=== PATIENT | female | born 1985 ===

== ENCOUNTER 2019-04-11 09:40 | Inpatient (IN) | payer BC ==
[2019-04-11] MEDS ORDERED: Sodium Chloride 0.9% 10 ML Syringe FLUSH PRN (10:13)
[2019-04-11] MEDS ORDERED: Tranexamic Acid 1,000 MG in Sodium Chloride 0.9% 100 ML IV PRN (10:13)
[2019-04-11] MEDS ORDERED: Carboprost Tromethamine 250 MCG/1 ML Amp IM PRN (10:13)
[2019-04-11] MEDS ORDERED: Methylergonovine 0.2 MG/1 ML Amp IM PRN (10:13)
[2019-04-11] MEDS ORDERED: Sodium Chloride 0.9% 10 ML SDV IV PRN (10:13)
[2019-04-11] MEDS ORDERED: Misoprostol 25 MCG (1/4 of 100 MCG) Tab VAG PRN ×2 (10:13)
[2019-04-11] MEDS ORDERED: Sodium Chloride 0.9% 2.5 ML Syringe FLUSH PRN (10:13)
[2019-04-11] MEDS ORDERED: Butorphanol 1 MG/ML SDV IVPUSH PRN (10:13)
[2019-04-11] MEDS ORDERED: Terbutaline 1 MG/ML SDV SUBCUT PRN (10:13)
[2019-04-11] MEDS ORDERED: Misoprostol 200 MCG Tab PO PRN (10:13)
[2019-04-11] MEDS ORDERED: Water For Irrigation,Sterile 1,000 ML Container IRR PRN (10:13)
[2019-04-11] MEDS ORDERED: Lidocaine 1% 50 ML MDV INJECT PRN (10:13)
[2019-04-11] MEDS ORDERED: Nalbuphine 10 MG/1 ML Vial IVPUSH PRN (10:13)
[2019-04-11] MEDS ORDERED: Oxytocin/0.9 % Sodium Chloride 30 UNIT/500 ML BAG IV SCH ×2 (10:15)
[2019-04-11] MEDS ORDERED: Lactated Ringers 1,000 ML IV SCH (10:15)
--- NOTE | 2019-04-11 10:19 | PCM.LDHP ---
L&D History of Present Illness - General Date of Service: 04/11/19 Admit Problem/Dx: Admission Diagnosis/Problem Admission Diagnosis/Problem Planned 04/11/19 10:13 34 yo [facility] 04/26/2019 37 6/7wks, planned home delivery but due to GBS pos and SROM at 0800 04/10/2019 <12h came in due to no labor. Source of Information: Patient History Limitations: Reports: No Limitations - History of Present Illness Timing/Duration: Reports: intermittent Location, : Reports: Abdomen Improves with: Reports: None Worsens with: Reports: None Associated Symptoms: Reports: N - Related Data Allergies/Adverse Reactions: Allergies Allergy/AdvReac Type Severity Reaction Status Date / Time No Known Allergies Allergy Verified 04/11/19 10:13 Home Medications: Home Meds Pnv No.95/Ferrous Fum/Folic AC [ Vitamins Tablet] 1 tab PO DAILY [History] H&P Review of Systems - Review of Systems: Review Of Systems: See Below General: Reports: No Symptoms HEENT: Reports: No Symptoms Pulmonary: Reports: No Symptoms Cardiovascular: Reports: No Symptoms Gastrointestinal: Reports: No Symptoms Genitourinary: Reports: No Symptoms Musculoskeletal: Reports: No Symptoms Skin: Reports: No Symptoms Psychiatric: Reports: No Symptoms Neurological: Reports: No Symptoms Hematologic/Lymphatic: Reports: No Symptoms Immunologic: Reports: No Symptoms L&D Exam - Exam Exam: See Below - Vital Signs Weight: 71.123 kg - OB Specific Contraction Intensity: Mild Movement: Active Heart Tones: Present Heart Tones per Min: 130 Heart Rate (FHR) Variability: Moderate (6-25 bmp) Presentation: Vertex (confirmed by BS u/s) - Delatorre Score Delatorre Score Cervix Position: Posterior Delatorre Score Consistency: Soft Delatorre Score Effacement: 51-70% Delatorre Score Dilation: 1-2 cm Delatorre Score 's Station: -3 Delatorre Score Total: 5 - Exam General: Alert, Oriented, Cooperative HEENT: Hearing Intact Lungs: Clear to Auscultation, Normal Respiratory Effort Cardiovascular: Regular Rate, Regular Rhythm, Normal S1, Normal S2 GI/Abdominal Exam: Soft, Non-Tender Rectal Exam: Deferred Genitourinary: Normal external exam, Normal bimanual exam, Cervical dilitation, Cervical fluid. No: Vaginal bleeding Back Exam: Normal Inspection, Full Range of Motion Extremities: Normal Inspection, Normal Range of Motion, Non-Tender, No Pedal Edema Skin: Warm, Dry, Intact Neurological: Cranial Nerves Intact, Strength Equal Bilateral, Normal Gait, Normal Speech, Normal Tone, Sensation Intact Psychiatric: Alert, Normal Affect, Normal Mood - Problem List (1) Grand multipara in labor SNOMED Code(s): 060442991 ICD Code: O09.40 - SUPERVISION OF W GRAND MULTIPARITY, UNSP TRIMESTER Status: Acute Priority: High Current Visit: Yes Qualifiers: Trimester: third trimester Qualified Code(s): O09.43 - Supervision of with grand multiparity, third trimester (2) SROM (spontaneous rupture of membranes) SNOMED Code(s): 623363920 ICD Code: [id number] - Status: Acute Priority: High Current Visit: Yes Problem List Initiated/Reviewed/Updated: Yes Assessment/Plan Comment:: SROM no labor A: 34 yo [facility] 04/26/2019 37 6/7wks, planned home delivery but due to GBS pos and SROM at 0800 04/10/2019 <12h came in due to no labor. P: Admit, antibiotics for GBS pos, will consider cytotec/pitocin if no active labor in 4 hours, anticipate MILLIE, Dr Merino updated.
[2019-04-11] MEDS ORDERED: Ampicillin 2 GM in Sodium Chloride 0.9% 100 ML IV ONE (10:30)
[2019-04-11] MEDS: Ampicillin 1 GM in Sodium Chloride 0.9% 50 ML IV SCH ×3 (14:12→22:14)
[2019-04-11] MEDS ORDERED: Misoprostol 25 MCG (1/4 of 100 MCG) Tab PO ONE ×2 (15:49→20:05)
--- NOTE | 2019-04-12 00:33 | PCM.DEL ---
L & D Note - General Info Date of Service: 04/12/19 Mother's Due Date: 04/26/19 - Delivery Note Labor: Spontaneous Cervical Ripening Method: Misoprostil Infant Delivery Method: Spontaneous Vaginal Delivery-Single Delivery Mode: Spontaneous Presentation: Vertex (confirmed by BS u/s) Nuchal Cord: Present Anesthesia Type: None Episiotomy Type: None Laceration: None Placenta: Intact, Spontaneous Cord: 3 Vessels Estimated Blood Loss: 100 Resuscitation Needed: No Score 1 min: 8 Score 5 min: 9 Second Stage Interventions: Reports: Pushing, Pulls Own Legs Back Delivery Comments (Free Text/Narrative):: of viable female, pt pushing on hands and knees head delivered, body followed quickly, nuchal x1 around the body. Infant into mothers arms and mom assisted to supine position. Delayed cord clamping. Cord clamped and cut by FOB. Placenta delivered grossly intact. Inspection noted intact perineum. EBL 100cc. APGARS 8/9. Wt: pending bonding. noted cleft lip and pallet. Mother and baby left in stable condition for recovery. Induction Criteria - Delatorre Score Delatorre Score Dilation: 3-4 cm Delatorre Score Effacement: >80% Delatorre Score Infant's Station: -2 Delatorre Score Consistency: Soft Delatorre Score Cervix Position: Posterior Delatorre Score Total: 8 Delatorre Score Presenting Part: Reports: Cephalic - Augmentation Estimated Pelvis: Reports: Adequate Weight Estimated:: Reports: AGA Reassuring Monitoring Strip: Yes Absence of Tachy Systole: Yes - General Info Date of Service: 04/12/19 Admission Dx/Problem (Free Text): Admission Diagnosis/Problem Admission Diagnosis/Problem Planned 04/11/19 10:13 34 yo [facility] 04/26/2019 37 6/7wks, planned home delivery but due to GBS pos and SROM at 0800 04/10/2019 <12h came in due to no labor. Functional Status: Reports: Pain Controlled, Tolerating Diet - Review of Systems General: Reports: No Symptoms HEENT: Reports: No Symptoms Pulmonary: Reports: No Symptoms Cardiovascular: Reports: No Symptoms Gastrointestinal: Reports: No Symptoms Genitourinary: Reports: No Symptoms Musculoskeletal: Reports: No Symptoms Skin: Reports: No Symptoms Neurological: Reports: No Symptoms Psychiatric: Reports: No Symptoms - Patient Data Weight - Most Recent: 71.123 kg Lab Results Last 24 Hours: Laboratory Results - last 24 hr 04/11/19 04/11/19 04/11/19 Range/Units 10:45 10:45 10:45 WBC 11.96 H (4.0-11.0) K/uL RBC 4.38 (4.30-5.90) M/uL Hgb 13.7 (12.0-16.0) g/dL Hct 40.2 (36.0-46.0) % MCV 91.8 (80.0-98.0) fL MCH 31.3 (27.0-32.0) pg MCHC 34.1 (31.0-37.0) g/dL RDW Std Deviation 44.5 (28.0-62.0) fl RDW Coeff of John 13 (11.0-15.0) % Plt Count 298 (150-400) K/uL MPV 9.30 (7.40-12.00) fL Nucleated RBC % 0.0 /100WBC Nucleated RBCs # 0 K/uL Hep Bs Antigen Index 0.2 (<1.0) INDEX Hep C Ab Index (DIMA) 0.08 (<0.8) INDEX HIV 1&2 Ag/Ab, 4th Gen 0.1 (<1.0) INDEX Rubella IgG Ab Index 101.5 IU/mL Blood Type O POSITIVE Antibody Screen NEGATIVE Med Orders - Current: Current Medications Butorphanol Tartrate (Stadol) 1 mg IVPUSH Q1H PRN PRN Reason: Pain Carboprost Tromethamine (Hemabate Ds) 250 mcg IM ASDIRECTED PRN PRN Reason: Post Hemorrhage Lactated Ringer's (Ringers, Lactated) 1,000 mls @ 150 mls/hr IV ASDIRECTED MONIQUE Last Admin: 04/11/19 10:33 Dose: 150 mls/hr Oxytocin/Sodium Chloride (Oxytocin 30 Unit/500 Ml-Ns) 30 unit in 500 mls @ 500 mls/hr IV TITRATE MONIQUE Oxytocin/Sodium Chloride (Oxytocin 30 Unit/500 Ml-Ns) 30 unit in 500 mls @ 2 mls/hr IV TITRATE MONIQUE; Protocol Tranexamic Acid 1,000 mg/ (Sodium Chloride) 110 mls @ 660 mls/hr IV ONETIME PRN PRN Reason: Bleeding Ampicillin Sodium 1 gm/ Sodium (Chloride) 50 mls @ 100 mls/hr IV Q4H MONIQUE Last Admin: 04/11/19 22:14 Dose: 100 mls/hr Lidocaine HCl (Xylocaine 1%) 50 ml INJECT ONETIME PRN PRN Reason: Laceration repair Methylergonovine Maleate (Methergine) 0.2 mg IM ASDIRECTED PRN PRN Reason: Post Hemorrhage Misoprostol (Cytotec) 200 mcg PO ONETIME PRN PRN Reason: Post Hemorrhage Misoprostol (Cytotec) 25 mcg VAG ONETIME PRN PRN Reason: Cervical Ripening Misoprostol (Cytotec) 25 mcg VAG Q4H PRN PRN Reason: Cervical Ripening Last Admin: 04/11/19 20:10 Dose: 25 mcg Nalbuphine HCl (Nubain) 10 mg IVPUSH Q1H PRN PRN Reason: Pain (severe 7-10) Sodium Chloride (Saline Flush) 10 ml FLUSH ASDIRECTED PRN PRN Reason: Keep Vein Open Sodium Chloride (Saline Flush) 2.5 ml FLUSH ASDIRECTED PRN PRN Reason: Keep Vein Open Sodium Chloride (Normal Saline) 10 ml IV ASDIRECTED PRN PRN Reason: IV Use Sterile Water (Sterile Water For Irrigation) 1,000 ml IRR ASDIRECTED PRN PRN Reason: delivery Terbutaline Sulfate (Brethine) 0.25 mg SUBCUT ASDIRECTED PRN PRN Reason: Tacysystole Discontinued Medications Ampicillin Sodium 2 gm/ Sodium (Chloride) 100 mls @ 200 mls/hr IV ONETIME ONE Stop: 04/11/19 10:59 Last Admin: 04/11/19 10:33 Dose: 200 mls/hr Misoprostol (Cytotec) 25 mcg PO ONETIME ONE Stop: 04/11/19 15:50 Last Admin: 04/11/19 15:59 Dose: 25 mcg Misoprostol (Cytotec) 25 mcg PO ONETIME ONE Stop: 04/11/19 20:06 Last Admin: 04/11/19 20:10 Dose: 25 mcg - Exam General: Alert, Oriented, Cooperative, No Acute Distress Lungs: Normal Respiratory Effort GI/Abdominal Exam: Soft, Non-Tender, Pelvis Stable (Female) Exam: Normal External Exam, Normal Bimanual Exam, Vaginal Bleeding. No: Vaginal Lesions, Vaginal Tears Back Exam: Normal Inspection, Full Range of Motion Extremities: Normal Inspection, Normal Range of Motion, Non-Tender, No Pedal Edema Skin: Warm, Dry, Intact Neurological: No New Focal Deficit, Normal Speech, Normal Tone, Strength Equal Bilateral, Sensation Intact Psy/Mental Status: Alert, Normal Affect, Normal Mood - Problem List & Annotations (1) Grand multipara in labor SNOMED Code(s): 239599525 Code(s): O09.40 - SUPERVISION OF W GRAND MULTIPARITY, UNSP TRIMESTER Status: Acute Priority: High Current Visit: Yes Qualifiers: Trimester: third trimester Qualified Code(s): O09.43 - Supervision of with grand multiparity, third trimester (2) SROM (spontaneous rupture of membranes) SNOMED Code(s): 704407313 Code(s): WSW4769 - Status: Acute Priority: High Current Visit: Yes (3) Prolonged rupture of membranes, greater than 24 hours, delivered SNOMED Code(s): 27295271, 207821807 Code(s): O42.10 - CHANELL ROM, ONSET LABOR > 24 HR FOL RUPT, UNSP WEEKS OF GEST Status: Acute Priority: High Current Visit: Yes (4) (normal spontaneous vaginal delivery) SNOMED Code(s): 43631781, 160849258 Code(s): O80 - ENCOUNTER FOR FULL-TERM UNCOMPLICATED DELIVERY Status: Acute Priority: High Current Visit: Yes - Problem List Review Problem List Initiated/Reviewed/Updated: Yes - My Orders Last 24 Hours: My Active Orders 04/11/19 14:00 Ampicillin 1 gm Sodium Chloride 0.9% [Normal Saline] 50 ml IV Q4H - Plan Plan:: SROM no labor A: 34 yo [facility] 04/26/2019 37 6/7wks, planned home delivery but due to GBS pos and SROM at 0800 04/10/2019 <12h came in due to no labor. P: Admit, antibiotics for GBS pos, will consider cytotec/pitocin if no active labor in 4 hours, anticipate , Dr Merino updated. Delivery A: viable female, APGARS 8/9, Wt pending, EBL 100cc, intact perineum. Stable P: routine pp plan of care
[2019-04-12] MEDS ORDERED: Lanolin 100% Cream 7 GM Tube TOP PRN (00:37)
[2019-04-12] MEDS ORDERED: Acetaminophen 500 MG Tab PO PRN ×2 (00:37)
[2019-04-12] MEDS ORDERED: Benzocaine/Menthol 20%-0.5% Spray 78 GM Cannister TOP PRN (00:37)
[2019-04-12] MEDS ORDERED: Witch Hazel Medicated Pads 40/Jar TOP PRN (00:37)
[2019-04-12] MEDS ORDERED: oxyCODONE 5 MG Tab PO PRN (00:37)
[2019-04-12] MEDS ORDERED: Bisacodyl 10 MG Supp RECTAL PRN (00:37)
[2019-04-12] MEDS ORDERED: Ibuprofen 400 MG Tab PO PRN (00:37)
[2019-04-12] MEDS ORDERED: Docusate Sodium 100 MG Cap PO PRN (00:37)
[2019-04-12] MEDS: Ibuprofen 800 MG Tab PO PRN ×3 (02:30→21:03)
--- NOTE | 2019-04-12 08:35 | PCM.PNPP ---
- General Info Date of Service: 04/12/19 Admission Dx/Problem (Free Text): Admission Diagnosis/Problem Admission Diagnosis/Problem Planned 04/11/19 10:13 34 yo [facility] 04/26/2019 37 6/7wks, planned home delivery but due to GBS pos and SROM at 0800 04/10/2019 <12h came in due to no labor. Functional Status: Reports: Pain Controlled, Tolerating Diet, Ambulating - Review of Systems General: Reports: No Symptoms HEENT: Reports: No Symptoms Pulmonary: Reports: No Symptoms Cardiovascular: Reports: No Symptoms Gastrointestinal: Reports: No Symptoms Genitourinary: Reports: No Symptoms Musculoskeletal: Reports: No Symptoms Skin: Reports: No Symptoms Neurological: Reports: No Symptoms Psychiatric: Reports: No Symptoms - General Info Date of Service: 04/12/19 - Patient Data Vital Signs - Most Recent: Last Vital Signs Temp 36.9 C 04/12/19 03:00 Pulse 78 04/12/19 03:00 Resp 16 04/12/19 03:00 BP 121/78 04/12/19 03:00 Pulse Ox 95 04/12/19 03:00 Weight - Most Recent: 71.123 kg Lab Results - Last 24 Hours: Laboratory Results - last 24 hr 04/11/19 04/11/19 04/11/19 Range/Units 10:45 10:45 10:45 WBC 11.96 H (4.0-11.0) K/uL RBC 4.38 (4.30-5.90) M/uL Hgb 13.7 (12.0-16.0) g/dL Hct 40.2 (36.0-46.0) % MCV 91.8 (80.0-98.0) fL MCH 31.3 (27.0-32.0) pg MCHC 34.1 (31.0-37.0) g/dL RDW Std Deviation 44.5 (28.0-62.0) fl RDW Coeff of John 13 (11.0-15.0) % Plt Count 298 (150-400) K/uL MPV 9.30 (7.40-12.00) fL Nucleated RBC % 0.0 /100WBC Nucleated RBCs # 0 K/uL Hep Bs Antigen Index 0.2 (<1.0) INDEX Hep C Ab Index (DIMA) 0.08 (<0.8) INDEX HIV 1&2 Ag/Ab, 4th Gen 0.1 (<1.0) INDEX Rubella IgG Ab Index 101.5 IU/mL Blood Type O POSITIVE Antibody Screen NEGATIVE Med Orders - Current: Current Medications Acetaminophen (Tylenol Extra Strength) 500 mg PO Q4H PRN PRN Reason: Pain Acetaminophen (Tylenol Extra Strength) 1,000 mg PO Q4H PRN PRN Reason: Pain Benzocaine/Menthol (Dermoplast Pain Relief 20%-0.5% [place]) 78 gm TOP ASDIRECTED PRN PRN Reason: Perineal Comfort Measure Bisacodyl (Dulcolax) 10 mg RECTAL ONETIME PRN PRN Reason: Constipation Docusate Sodium (Colace) 100 mg PO BID PRN PRN Reason: Constipation Emollient Ointment (Lansinoh Hpa) 0 gm TOP ASDIRECTED PRN PRN Reason: Sore Nipples Last Admin: 04/12/19 02:31 Dose: 7 gm Ibuprofen (Motrin) 400 mg PO Q4H PRN PRN Reason: Pain Ibuprofen (Motrin) 800 mg PO Q6H PRN PRN Reason: Pain Last Admin: 04/12/19 02:30 Dose: 800 mg Oxycodone HCl (Oxycodone) 5 mg PO Q2H PRN PRN Reason: Pain Witch Narcisa (Tucks) 1 pad TOP ASDIRECTED PRN PRN Reason: comfort care Discontinued Medications Butorphanol Tartrate (Stadol) 1 mg IVPUSH Q1H PRN PRN Reason: Pain Carboprost Tromethamine (Hemabate Ds) 250 mcg IM ASDIRECTED PRN PRN Reason: Post Hemorrhage Ampicillin Sodium 2 gm/ Sodium (Chloride) 100 mls @ 200 mls/hr IV ONETIME ONE Stop: 04/11/19 10:59 Last Admin: 04/11/19 10:33 Dose: 200 mls/hr Lactated Ringer's (Ringers, Lactated) 1,000 mls @ 150 mls/hr IV ASDIRECTED MONIQUE Last Admin: 04/11/19 10:33 Dose: 150 mls/hr Oxytocin/Sodium Chloride (Oxytocin 30 Unit/500 Ml-Ns) 30 unit in 500 mls @ 500 mls/hr IV TITRATE [facility] Oxytocin/Sodium Chloride (Oxytocin 30 Unit/500 Ml-Ns) 30 unit in 500 mls @ 2 mls/hr IV TITRATE MONIQUE; Protocol Tranexamic Acid 1,000 mg/ (Sodium Chloride) 110 mls @ 660 mls/hr IV ONETIME PRN PRN Reason: Bleeding Ampicillin Sodium 1 gm/ Sodium (Chloride) 50 mls @ 100 mls/hr IV Q4H MONIQUE Stop: 04/12/19 00:36 Last Admin: 04/11/19 22:14 Dose: 100 mls/hr Lidocaine HCl (Xylocaine 1%) 50 ml INJECT ONETIME PRN PRN Reason: Laceration repair Methylergonovine Maleate (Methergine) 0.2 mg IM ASDIRECTED PRN PRN Reason: Post Hemorrhage Misoprostol (Cytotec) 200 mcg PO ONETIME PRN PRN Reason: Post Hemorrhage Misoprostol (Cytotec) 25 mcg VAG ONETIME PRN PRN Reason: Cervical Ripening Misoprostol (Cytotec) 25 mcg VAG Q4H PRN PRN Reason: Cervical Ripening Last Admin: 04/11/19 20:10 Dose: 25 mcg Misoprostol (Cytotec) 25 mcg PO ONETIME ONE Stop: 04/11/19 15:50 Last Admin: 04/11/19 15:59 Dose: 25 mcg Misoprostol (Cytotec) 25 mcg PO ONETIME ONE Stop: 04/11/19 20:06 Last Admin: 04/11/19 20:10 Dose: 25 mcg Nalbuphine HCl (Nubain) 10 mg IVPUSH Q1H PRN PRN Reason: Pain (severe 7-10) Sodium Chloride (Saline Flush) 10 ml FLUSH ASDIRECTED PRN PRN Reason: Keep Vein Open Sodium Chloride (Saline Flush) 2.5 ml FLUSH ASDIRECTED PRN PRN Reason: Keep Vein Open Sodium Chloride (Normal Saline) 10 ml IV ASDIRECTED PRN PRN Reason: IV Use Sterile Water (Sterile Water For Irrigation) 1,000 ml IRR ASDIRECTED PRN PRN Reason: delivery Terbutaline Sulfate (Brethine) 0.25 mg SUBCUT ASDIRECTED PRN PRN Reason: Tacysystole - Infant Interaction Disposition, : [place]ado in Room with Family Infant Interaction: Holding Infant Feeding: Other (see below) (pumping and feeding via bottle/ syringe. Cleft lip and pallet) - Recovery Exam Fundal Tone: Firm Fundal Level: At Umbilicus Fundal Placement: Midline Lochia Amount: Small Lochia Color: Rubra/Red Perineum Description: Intact, Minimal Bruising/Swelling Episiotomy/Laceration: None Bladder Status: Voiding Urinary Elimination: Voided - Exam General: Alert, Oriented HEENT: Pupils Equal Neck: Supple Lungs: Normal Respiratory Effort GI/Abdominal Exam: Soft, Non-Tender, No Organomegaly, Pelvis Stable Extremities: Normal Inspection, Normal Range of Motion, Non-Tender, No Pedal Edema, Normal Capillary Refill Skin: Warm, Dry, Intact Neurological: No New Focal Deficit, Normal Speech, Normal Tone, Strength Equal Bilateral, Sensation Intact Psy/Mental Status: Alert, Normal Affect, Normal Mood - Problem List & Annotations (1) Grand multipara in labor SNOMED Code(s): 896358493 Code(s): O09.40 - SUPERVISION OF W GRAND MULTIPARITY, UNSP TRIMESTER Status: Acute Priority: High Current Visit: Yes Qualifiers: Trimester: third trimester Qualified Code(s): O09.43 - Supervision of with grand multiparity, third trimester (2) SROM (spontaneous rupture of membranes) SNOMED Code(s): 208043489 Code(s): AHL1570 - Status: Acute Priority: High Current Visit: Yes (3) Prolonged rupture of membranes, greater than 24 hours, delivered SNOMED Code(s): 88760229, 448631132 Code(s): O42.10 - CHANELL ROM, ONSET LABOR > 24 HR FOL RUPT, UNSP WEEKS OF GEST Status: Acute Priority: High Current Visit: Yes (4) (normal spontaneous vaginal delivery) SNOMED Code(s): 28266682, 935238178 Code(s): O80 - ENCOUNTER FOR FULL-TERM UNCOMPLICATED DELIVERY Status: Acute Priority: High Current Visit: Yes - Problem List Review Problem List Initiated/Reviewed/Updated: Yes - My Orders Last 24 Hours: My Active Orders 04/12/19 00:37 May Shower [RC] ASDIRECTED Up ad Conchsi [RC] ASDIRECTED Vital Signs [RC] PER UNIT ROUTINE Acetaminophen [Tylenol Extra Strength] 1,000 mg PO Q4H PRN Acetaminophen [Tylenol Extra Strength] 500 mg PO Q4H PRN Benzocaine/Menthol [Dermoplast Pain Relief 20%-0.5% [place]] 78 gm TOP ASDIRECTED PRN Bisacodyl [Dulcolax] 10 mg RECTAL ONETIME PRN Docusate Sodium [Colace] 100 mg PO BID PRN Ibuprofen [Motrin] 400 mg PO Q4H PRN Ibuprofen [Motrin] 800 mg PO Q6H PRN Lanolin [Lansinoh HPA] See Dose Instructions TOP ASDIRECTED PRN Witch Narcisa [Tucks] 1 pad TOP ASDIRECTED PRN oxyCODONE 5 mg PO Q2H PRN Assess Lochia [WOMSER] Per Unit Routine Assess Uterine Involution [WOMSER] Per Unit Routine Peripheral IV Discontinue [OM.PC] Routine Resuscitation Status Routine 04/12/19 00:38 Patient Status [ADT] Routine 04/12/19 Breakfast Regular Diet [DIET] - Plan Plan:: SROM no labor A: 34 yo EDC 04/26/2019 37 6/7wks, planned home delivery but due to GBS pos and SROM at 0800 04/10/2019 <12h came in due to no labor. P: Admit, antibiotics for GBS pos, will consider cytotec/pitocin if no active labor in 4 hours, anticipate , Dr Merino updated. Delivery A: viable female, APGARS 8/9, Wt pending, EBL 100cc, intact perineum. Stable P: routine pp plan of care PPD#0 A: VSS, AF, denies heavy bleeding, pain, or discomfort. Feeding infant well P: Continue pp plan of care
--- NOTE | 2019-04-13 09:10 | PCM.DCSUM1 ---
Discharge Summary - Hospital Course Free Text/Narrative:: Discharge home with infant. Follow up in 6 weeks for . Diagnosis: Stroke: No Modified Karol Scale: No Symptoms at All Modified Karol Scale Score: 0 - Discharge Data Discharge Date: 04/13/19 Discharge Disposition: Home, Self-Care 01 Condition: Good - Referral to Home Health Primary Care Physician: PCP Unobtainable - Discharge Diagnosis/Problem(s) (1) Grand multipara in labor SNOMED Code(s): 359915786 ICD Code: O09.40 - SUPERVISION OF W GRAND MULTIPARITY, UNSP TRIMESTER Status: Acute Priority: High Current Visit: Yes Qualifiers: Trimester: third trimester Qualified Code(s): O09.43 - Supervision of with grand multiparity, third trimester (2) SROM (spontaneous rupture of membranes) SNOMED Code(s): 951821773 ICD Code: [id number] - Status: Acute Priority: High Current Visit: Yes (3) Prolonged rupture of membranes, greater than 24 hours, delivered SNOMED Code(s): 53590457, 225716047 ICD Code: O42.10 - CHANELL ROM, ONSET LABOR > 24 HR FOL RUPT, UNSP WEEKS OF GEST Status: Acute Priority: High Current Visit: Yes (4) (normal spontaneous vaginal delivery) SNOMED Code(s): 76680059, 536366389 ICD Code: O80 - ENCOUNTER FOR FULL-TERM UNCOMPLICATED DELIVERY Status: Acute Priority: High Current Visit: Yes - Patient Instructions Diet: Usual Diet as Tolerated Activity: As Tolerated, No Strenuous Activities, Rest and Relax Today Driving: May Drive Today Showering/Bathing: May Shower Notify Provider of: Fever, Increased Pain, Swelling and Redness, Nausea and/or Vomiting Other/Special Instructions: Discharge home with infant. Follow up in 6 weeks for . - Discharge Plan *PRESCRIPTION DRUG MONITORING PROGRAM REVIEWED*: Not Applicable *COPY OF PRESCRIPTION DRUG MONITORING REPORT IN PATIENT VITO: Not Applicable Home Medications: Home Meds Pnv No.95/Ferrous Fum/Folic AC [ Vitamins Tablet] 1 tab PO DAILY [History] Oxygen Therapy Mode: Room Air Referrals: [facility] [Outside] Latoya Lindsey CNM [Mid-] - 05/24/19 3:00 pm - Discharge Summary/Plan Comment DC Time >30 min.: Yes - General Info Date of Service: 04/13/19 Admission Dx/Problem (Free Text: Admission Diagnosis/Problem Admission Diagnosis/Problem Planned 04/11/19 10:13 34 yo [facility] 04/26/2019 37 6/7wks, planned home delivery but due to GBS pos and SROM at 0800 04/10/2019 <12h came in due to no labor. Functional Status: Reports: Pain Controlled, Tolerating Diet, Ambulating, Urinating - Review of Systems General: Reports: No Symptoms HEENT: Reports: No Symptoms Pulmonary: Reports: No Symptoms Cardiovascular: Reports: No Symptoms Gastrointestinal: Reports: No Symptoms Genitourinary: Reports: No Symptoms Musculoskeletal: Reports: No Symptoms Skin: Reports: No Symptoms Neurological: Reports: No Symptoms Psychiatric: Reports: No Symptoms - Patient Data Vitals - Most Recent: Last Vital Signs Temp 36.3 C 04/13/19 04:42 Pulse 70 04/13/19 07:30 Resp 16 04/13/19 07:30 BP 119/74 04/13/19 07:30 Pulse Ox 97 04/13/19 07:30 Weight - Most Recent: 71.123 kg Lab Results - Last 24 hrs: Laboratory Results - last 24 hr 04/11/19 Range/Units 10:45 RPR Non Reactive (NonRea<1:1) Med Orders - Current: Current Medications Acetaminophen (Tylenol Extra Strength) 500 mg PO Q4H PRN PRN Reason: Pain Acetaminophen (Tylenol Extra Strength) 1,000 mg PO Q4H PRN PRN Reason: Pain Benzocaine/Menthol (Dermoplast Pain Relief 20%-0.5% [place]) 78 gm TOP ASDIRECTED PRN PRN Reason: Perineal Comfort Measure Bisacodyl (Dulcolax) 10 mg RECTAL ONETIME PRN PRN Reason: Constipation Docusate Sodium (Colace) 100 mg PO BID PRN PRN Reason: Constipation Emollient Ointment (Lansinoh Hpa) 0 gm TOP ASDIRECTED PRN PRN Reason: Sore Nipples Last Admin: 04/12/19 02:31 Dose: 7 gm Ibuprofen (Motrin) 400 mg PO Q4H PRN PRN Reason: Pain Ibuprofen (Motrin) 800 mg PO Q6H PRN PRN Reason: Pain Last Admin: 04/12/19 21:03 Dose: 800 mg Oxycodone HCl (Oxycodone) 5 mg PO Q2H PRN PRN Reason: Pain Witch Narcisa (Tucks) 1 pad TOP ASDIRECTED PRN PRN Reason: comfort care Discontinued Medications Butorphanol Tartrate (Stadol) 1 mg IVPUSH Q1H PRN PRN Reason: Pain Carboprost Tromethamine (Hemabate Ds) 250 mcg IM ASDIRECTED PRN PRN Reason: Post Hemorrhage Ampicillin Sodium 2 gm/ Sodium (Chloride) 100 mls @ 200 mls/hr IV ONETIME ONE Stop: 04/11/19 10:59 Last Admin: 04/11/19 10:33 Dose: 200 mls/hr Lactated Ringer's (Ringers, Lactated) 1,000 mls @ 150 mls/hr IV ASDIRECTED MONIQUE Last Admin: 04/11/19 10:33 Dose: 150 mls/hr Oxytocin/Sodium Chloride (Oxytocin 30 Unit/500 Ml-Ns) 30 unit in 500 mls @ 500 mls/hr IV TITRATE MONIQUE Oxytocin/Sodium Chloride (Oxytocin 30 Unit/500 Ml-Ns) 30 unit in 500 mls @ 2 mls/hr IV TITRATE MONIQUE; Protocol Tranexamic Acid 1,000 mg/ (Sodium Chloride) 110 mls @ 660 mls/hr IV ONETIME PRN PRN Reason: Bleeding Ampicillin Sodium 1 gm/ Sodium (Chloride) 50 mls @ 100 mls/hr IV Q4H MONIQUE Stop: 04/12/19 00:36 Last Admin: 04/11/19 22:14 Dose: 100 mls/hr Lidocaine HCl (Xylocaine 1%) 50 ml INJECT ONETIME PRN PRN Reason: Laceration repair Methylergonovine Maleate (Methergine) 0.2 mg IM ASDIRECTED PRN PRN Reason: Post Hemorrhage Misoprostol (Cytotec) 200 mcg PO ONETIME PRN PRN Reason: Post Hemorrhage Misoprostol (Cytotec) 25 mcg VAG ONETIME PRN PRN Reason: Cervical Ripening Misoprostol (Cytotec) 25 mcg VAG Q4H PRN PRN Reason: Cervical Ripening Last Admin: 04/11/19 20:10 Dose: 25 mcg Misoprostol (Cytotec) 25 mcg PO ONETIME ONE Stop: 04/11/19 15:50 Last Admin: 04/11/19 15:59 Dose: 25 mcg Misoprostol (Cytotec) 25 mcg PO ONETIME ONE Stop: 04/11/19 20:06 Last Admin: 04/11/19 20:10 Dose: 25 mcg Nalbuphine HCl (Nubain) 10 mg IVPUSH Q1H PRN PRN Reason: Pain (severe 7-10) Sodium Chloride (Saline Flush) 10 ml FLUSH ASDIRECTED PRN PRN Reason: Keep Vein Open Sodium Chloride (Saline Flush) 2.5 ml FLUSH ASDIRECTED PRN PRN Reason: Keep Vein Open Sodium Chloride (Normal Saline) 10 ml IV ASDIRECTED PRN PRN Reason: IV Use Sterile Water (Sterile Water For Irrigation) 1,000 ml IRR ASDIRECTED PRN PRN Reason: delivery Terbutaline Sulfate (Brethine) 0.25 mg SUBCUT ASDIRECTED PRN PRN Reason: Tacysystole - Exam General: Reports: Alert, Oriented, Cooperative, No Acute Distress Lungs: Reports: Normal Respiratory Effort GI/Abdominal Exam: Soft, Non-Tender (Female) Exam: Deferred, Vaginal Bleeding. No: Vaginal Lesions, Vaginal Tears Rectal (Female) Exam: Deferred Back Exam: Reports: Normal Inspection, Full Range of Motion Extremities: Normal Inspection, Normal Range of Motion, Non-Tender, No Pedal Edema Skin: Reports: Warm, Dry, Intact Neurological: Reports: No New Focal Deficit, Normal Speech, Normal Tone, Strength Equal Bilateral, Sensation Intact Psy/Mental Status: Reports: Alert, Normal Affect, Normal Mood
== END 2019-04-13 13:40 | disposition home or self-care (01) | DRG 560 ==
LOC: MW.OB 09:40 → OBSVTOIN 04-12 00:05 → MW.OB 04-12 02:50 → MW.MS 04-12 15:20 → MW.OB 04-12 15:24
PROVIDERS: ADMIT Obstetrics & Gynecology; ATTEND Obstetrics & Gynecology
PROC: 10E0XZZ Delivery of Products of Conception, External Approach (ICD-10-PCS; principal; 2019-04-12)
PROC: 10907ZC Drainage of Amniotic Fluid, Therapeutic from Products of Conception, Via Natural or Artificial Opening (ICD-10-PCS; 2019-04-12)
PROC: 3E0P7VZ Introduction of Hormone into Female Reproductive, Via Natural or Artificial Opening (ICD-10-PCS; 2019-04-12)
DX: O42.12 Full-term premature rupture of membranes, onset of labor more than 24 hours following rupture (principal); O99.824 Streptococcus B carrier state complicating childbirth; O69.81X0 Labor and delivery complicated by cord around neck, without compression, not applicable or unspecified; Z3A.37 37 weeks gestation of pregnancy; Z37.0 Single live birth
CPT/HCPCS: 36415; 59025; 59409; 85027; 86593; 86762; 86803; 86850; 86900; 86901; 87340; 87389; A9270-GY; J0290; J7050; J7120